=== PATIENT | female | born 1945 | race Caucasian/White ===

== ENCOUNTER 2017-11-11 16:20 | Emergency (ER) | payer MEDICARE ==
--- NOTE | 2017-11-11 16:25 | ED Physician Documentation ---
PD HPI UPPER EXT INJURY - Stated complaint Stated Complaint: RT THUMB PX - History obtained from History obtained from: Patient - History of Present Illness Location: Right, Finger (She was out gardening 3 days ago and had a small puncture wound to the dorsum of the right thumb. She had been working around the [place]. She was not sure exactly what had caused the injury. She did not see any residual foreign body or splinter. However she was tender locally at the spot and has had increasing redness and swelling in that area over the last day and a half. The redness and pain is starting to extend proximally to the base of the thumb. There is no pain in the forearm.) Type of injury: Puncture wound Where injury occurred: Home Timing - onset: How many days ago (3) Timing - duration: Days (3) Timing - details: Gradual onset, Still present Worsened by: Moving, Palpating Associated symptoms: Swelling, Discolored (red and tender). No: Weakness, Numbness Similar symptoms before: Has not had sx before Recently seen: Not recently seen Review of Systems Constitutional: denies: Fever, Chills Neurologic: denies: Focal weakness, Numbness PD PAST MEDICAL HISTORY - Past Medical History Cardiovascular: None Respiratory: None Neuro: None Endocrine/Autoimmune: None - Present Medications Home Medications: Ambulatory Orders Medication Instructions Recorded Confirmed Doxycycline Monohydrate 100 mg PO BID #14 tablet 11/11/17 - Allergies Allergies/Adverse Reactions: Allergies Allergy/AdvReac Type Severity Reaction Status Date / Time No Known Drug Allergies Allergy Verified 11/11/17 16:30 PD ED PE NORMAL - Vitals Vital signs reviewed: Yes - General General: Alert and oriented X 3, No acute distress, Well developed/nourished - Derm Derm: Normal color, Warm and dry - Extremities Extremities: Other (Dorsum of the right thumb shows localized swelling with local tenderness. There is no obvious fluctuance. There is no discharge. This is on the dorsum of the distal phalanx proximal to the nail and does encompass some of the IP joint. There is faint redness extending proximally. It does not extend proximal to the MCP. There is no tenderness in the forearm and no pain with range of motion of the wrist.) - Neuro Neuro: No motor deficit, No sensory deficit Results - Vitals Vitals: Oxygen O2 Source Room air PD MEDICAL DECISION MAKING - ED course Complexity details: reviewed results (Bedside ultrasound did not show any obvious fluid pocket. There is a 1 mm thick layer of fluid just under the skin that did not warrant incision or drainage. I did not see any obvious foreign body.), considered differential, d/w patient Departure - Departure Disposition: 01 Home, Self Care Clinical Impression: Finger infection Condition: Stable Record reviewed to determine appropriate education?: Yes Instructions: ED Staph Infec Abx Tx Only Follow-Up: Juli Khan MD [Primary Care Provider] - Prescriptions: Doxycycline Monohydrate 100 mg PO BID #14 tablet Comments: Warm soaks a few times a day and he can use topical antibiotic ointment. Use doxycycline oral antibiotic twice daily for the next 5 or 6 days until fully improved. Tylenol or ibuprofen if needed for pains. Recheck if not improving over the next few days. Discharge Date/Time: 11/11/17 16:57
[2017-11-11 16:40] VITALS: BP 157/74
[2017-11-11] MEDS ORDERED: NAPROXEN 250 MG TABLET PO STA (16:47)
[2017-11-11] MEDS ORDERED: DOXYCYCLINE 100 MG TABLET PO STA (16:47)
== END 2017-11-11 16:57 | disposition home or self-care (01) ==
LOC: ED 16:20
DX: S61.031A Puncture wound without foreign body of right thumb without damage to nail, initial encounter (principal); L08.9 Local infection of the skin and subcutaneous tissue, unspecified; X58.XXXA Exposure to other specified factors, initial encounter; Y93.H2 Activity, gardening and landscaping
CPT/HCPCS: 99283; A9270

== ENCOUNTER 2018-01-10 13:32 | Emergency (ER) | payer MEDICARE ==
[2018-01-10 13:45] VITALS: BP 146/84
[2018-01-10] MEDS ORDERED: BUFFERED LIDOCAINE 10 ML SYRINGE SUBQ STA (13:58)
[2018-01-10] MEDS ORDERED: TETANUS/DIPHTHERIA/PERTUSSIS 0.5 ML SYRINGE IM ONE (14:05)
--- NOTE | 2018-01-10 14:06 | ED Physician Documentation ---
PD HPI UPPER EXT INJURY - Stated complaint Stated Complaint: RT MID FIN LAC - Chief complaint Chief Complaint: Laceration - History obtained from History obtained from: Patient - History of Present Illness Location: Right, Finger (Caught in a garage door with a laceration, tetanus is unknown.) Review of Systems Constitutional: reports: Reviewed and negative Throat: reports: Reviewed and negative Cardiac: reports: Reviewed and negative Respiratory: reports: Reviewed and negative PD PAST MEDICAL HISTORY - Past Medical History Past Medical History: No Cardiovascular: None Respiratory: None Endocrine/Autoimmune: None - Past Surgical History Past Surgical History: Yes General: Appendectomy 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 - Present Medications Home Medications: Ambulatory Orders Medication Instructions Recorded Confirmed Doxycycline Monohydrate 100 mg PO BID #14 tablet 11/11/17 Cephalexin [Keflex] 500 mg PO QID #20 capsule 01/10/18 - Allergies Allergies/Adverse Reactions: Allergies Allergy/AdvReac Type Severity Reaction Status Date / Time No Known Drug Allergies Allergy Verified 11/11/17 16:30 - Social History Does the pt smoke?: No Smoking Status: Never smoker Does the pt drink ETOH?: Yes ETOH Use: Wine Does the pt have substance abuse?: No - Immunizations Immunizations are current?: Yes - POLST Patient has POLST: No PD ED PE NORMAL - Vitals Vital signs reviewed: Yes - General General: Alert and oriented X 3, No acute distress - Extremities Extremities: Other (Right middle finger is tender over the tuft, 1cm lac on the palmar sfc, NVI distal, she also has a large subungual Hematoma.) - Neuro Neuro: Alert and oriented X 3, Normal speech Results - Vitals Vitals: Vital Signs - 24 hr 01/10/18 13:42 Temperature 36.8 C Heart Rate 65 Respiratory 16 Rate Blood Pressure 146/84 H O2 Saturation 99 Oxygen O2 Source Room air - Rads (name of study) R 2nd finger Radiology: EMP read indepedently (Looks like there is a little avulsion fracture /chip fracture of the proximal surface of the distal phalanx proximally.) Procedures - Laceration (location) R 3rd finger Length in cm: 1 Wound type: Linear, Other (It was a tiny little puncture lack at the tip and one suture was placed in that and then a longer lack on the palmar surface of the tuft) Neurovascular status: Sensory intact, Motor intact Anesthesia: Lidocaine 1%, With bicarb Wound Preparation: Betadine, Irrigated copiously NS Skin layer closure: Nylon (4-0), Interrupted, Sutures - enter # (5) Other: Patient tolerated well, No complications, Neurovascular intact, Tetanus booster given Complexity: Simple PD MEDICAL DECISION MAKING - Sepsis Event Vital Signs: Vital Signs - 24 hr 01/10/18 13:42 Temperature 36.8 C Heart Rate 65 Respiratory 16 Rate Blood Pressure 146/84 H O2 Saturation 99 Oxygen O2 Source Room air Departure - Departure Disposition: 01 Home, Self Care Clinical Impression: Laceration Open finger fracture Qualifiers: Encounter type: initial encounter Finger: middle finger Phalanx: distal Fracture alignment: nondisplaced Laterality: right Qualified Code(s): S62.662B - Nondisplaced fracture of distal phalanx of right middle finger, initial encounter for open fracture Condition: Good Record reviewed to determine appropriate education?: Yes Instructions: ED Fx Finger Open Prescriptions: Cephalexin [Keflex] 500 mg PO QID #20 capsule Comments: Keep the current dressing on for a day and then you can wash it briefly with soap and water and then a Band-Aid and then the splint. Come back for any signs of infection which would include: Redness, swelling, drainage, increased pain, or fevers. Follow-up with your physician in About 14 days for suture removal. Your blood pressure was elevated today on check into the emergency department. This does not mean that you have hypertension, it is a common phenomenon to come to the emergency department and have elevated blood pressure. I recommend that you see your primary care physician within the week to have it rechecked when you are feeling better. Discharge Date/Time: 01/10/18 14:47
[2018-01-10] MEDS ORDERED: BUFFERED LIDOCAINE 10 ML SYRINGE ONE (14:10)
--- NOTE | 2018-01-10 22:52 | XRAY Report ---
Procedure Date: 01/10/2018 Accession Number: [id number] / [id number] Procedure: XR - Finger(s) RT CPT Code: FULL RESULT: IMPRESSION: Third digit distal phalanx base volar fracture RADIA
== END 2018-01-10 14:47 | disposition home or self-care (01) ==
LOC: ED 13:32
DX: S62.662B Nondisplaced fracture of distal phalanx of right middle finger, initial encounter for open fracture (principal); W31.89XA Contact with other specified machinery, initial encounter; R03.0 Elevated blood-pressure reading, without diagnosis of hypertension
CPT/HCPCS: 12001; 73140; 90471; 99283